=== PATIENT | female | born 1965 | race Caucasian/White ===

== ENCOUNTER → 2017-05-18 | Outpatient (CLI) | payer OTHER ==
[2017-05-19 10:59] LABS: HIV 1&2 SCREEN CENTAUR NEGATIVE (NEGATIVE)
[2017-05-19 13:06] LABS: HEPATITIS C VIRUS ABY INDEX 0.1 INDEX (<0.8)
[2017-05-19 14:15] LABS: TESTOSTERONE FREE (DIRECT) 0.3 pg/mL (0.0-4.2)
== END ==
LOC: M LAB 11:17
DX: Z12.31 Encounter for screening mammogram for malignant neoplasm of breast (principal); N91.4 Secondary oligomenorrhea; Z72.51 High risk heterosexual behavior
CPT/HCPCS: 77067

== ENCOUNTER 2017-07-26 07:05 | Day surgery (SDC) | payer OTHER ==
[2017-07-26] MEDS: NS 1,000 ML IV (07:00)
[2017-07-26] MEDS ORDERED: LIDOCAINE 2% INJ 100 MG/5 ML SDV (FOR ANES.) As Ordered (07:23)
[2017-07-26] MEDS ORDERED: PROPOFOL 200 MG/20 ML VIAL As Ordered (07:23)
== END 2017-07-26 09:12 | disposition home or self-care (01) ==
LOC: M OPP 07:05
DX: Z12.11 Encounter for screening for malignant neoplasm of colon (principal); F41.1 Generalized anxiety disorder; F17.210 Nicotine dependence, cigarettes, uncomplicated; K29.70 Gastritis, unspecified, without bleeding; Z79.899 Other long term (current) drug therapy; Z91.040 Latex allergy status; Z90.711 Acquired absence of uterus with remaining cervical stump; Z91.89 Other specified personal risk factors, not elsewhere classified; Z80.3 Family history of malignant neoplasm of breast; Z83.3 Family history of diabetes mellitus
CPT/HCPCS: 45378

== ENCOUNTER → 2018-09-30 | Outpatient (CLI) | payer BC, OTHER ==
[~2018-09-30] MED LIST: ABIL1TAB12 PO; MULT1TAB10 PO; PREM.6256 PO; SERT-138 PO; TRAZ-252 PO
--- NOTE | 2018-10-03 11:59 | REPMRS ---
Patient History The patient states she had a clinical breast exam in September 2018. Patient is postmenopausal and is nulliparous. Family history of breast cancer at age 55 in mother, colorectal cancer in paternal aunt. Took unspecified hormones for 6 months. 3D TOMOSYNTHESIS WAS PERFORMED. Digital Mammo Screening Bilat: September 30, 2018 - Exam #: [id number] Bilateral CC and MLO view(s) were taken. Technologist: Jessica Harper Technologist Prior study comparison: May 18, 2017, bilateral digital mammo screening bilat performed at [facility]. FINDINGS: The breast tissue is extremely dense which could obscure a lesion on mammography. There is no evidence of cancer on this mammogram. Assessment: BI-RADS/ACR category 2 mammogram. Benign Findings. Recommendation Routine screening mammogram of both breasts in 1 year (for women over age 40). This mammogram was interpreted with the aid of an FDA-approved computer-aided dectection system. THE LIFETIME RISK OF BREAST CANCER IS 25.1%, THEREFORE SUPPLEMENTAL SCREENING MRI OF THE BREASTS IS RECOMMENDED IN 6 MONTHS. Electronically Signed By: Rachid Bhakta MD 10/03/18 [id number]
== END ==
LOC: M RAD 10:13
PROVIDERS: ATTEND Obstetrics & Gynecology
DX: Z12.31 Encounter for screening mammogram for malignant neoplasm of breast (principal); Z80.3 Family history of malignant neoplasm of breast; Z78.0 Asymptomatic menopausal state; Z92.23 Personal history of estrogen therapy

== ENCOUNTER → 2020-06-14 | Outpatient (CLI) | payer BC ==
[~2020-06-14] MED LIST changes: +PROHANCE 279.3MG/ML 15ML VIAL As Ordered ONE; +PROHANCE 279.3MG/ML 5ML VIAL As Ordered ONE
--- NOTE | 2020-06-14 11:15 | REP ---
INDICATION: HIGH RISK FOR BREAST CA. COMPARISON: Mammogram 09/30/2018. TECHNIQUE: Three Daisy MRI imaging was performed with a dedicated breast coil. Axial, coronal, and sagittal T1 and T2 weighted scans were obtained with and without fat saturation in the usual fashion. The study includes dynamically acquired post gadolinium-enhanced imaging with image subtraction. Maximum intensity projection and multi planar reformation imaging is included as well. This study is interpreted with the aid of [employer]oQuest, an FDA approved computer aided detection (CAD) software program, on a dedicated breast MRI workstation. The gadolinium enhancement dose is 18 mL of intravenous ProHance. FINDINGS: Moderate to large amount of fibroglandular tissue is present bilaterally in a fairly symmetrical pattern.There is no axillary adenopathy identified. No significant cystic change is seen. There is mild background parenchymal enhancement. There is no suspicious enhancing mass or morphologic abnormality. IMPRESSION: BI-RADS category 1, negative bilateral breast MRI. No suspicious enhancing mass or morphologic abnormality. Yearly supplemental screening MRI of the breasts is recommended for patients with an elevated lifetime risk of breast cancer of 20% or greater, in addition to annual screening mammography, staggered every 6 months. <Electronically signed by Rachid Bhakta > 06/14/20 1111
== END ==
LOC: M RAD 08:35
PROVIDERS: ATTEND Surgery
DX: Z15.01 Genetic susceptibility to malignant neoplasm of breast (principal); Z91.89 Other specified personal risk factors, not elsewhere classified
CPT/HCPCS: A9576; C8908

== ENCOUNTER → 2020-11-21 | Outpatient (CLI) | payer BC ==
[~2020-11-21] MED LIST changes: -PROHANCE 279.3MG/ML 15ML VIAL As Ordered ONE; -PROHANCE 279.3MG/ML 5ML VIAL As Ordered ONE
--- NOTE | 2020-11-21 08:22 | REPMRS ---
Patient History The patient states she had a clinical breast exam in October 2020. Patient is postmenopausal and is nulliparous. Family history of breast cancer at age 55 in mother, colorectal cancer in paternal aunt. Taking progesterone for 1 year. Took unspecified hormones for 6 months. Patient states no breast complaints today. Patient has signed MRS History Sheet. Digital Woman Screen Mammo: November 21, 2020 - Exam #: [id number] Bilateral CC and MLO view(s) were taken. Technologist: Sussy Sims, Technologist Prior study comparison: September 30, 2018, bilateral digital mammo screening bilat, performed at [facility]. May 18, 2017, bilateral digital mammo screening bilat, performed at [facility]. FINDINGS: The breast tissue is heterogeneously dense. This may lower the sensitivity of mammography. Screening. Digital screening (2D) mammography was performed bilaterally in the CC and MLO projections. Additionally, breast tomosynthesis (3D mammography) was performed bilaterally in the CC and MLO projections. Todays exam was compared to the prior exam/exams. By history, the patient has no complaints of a palpable breast abnormality or other significant breast complaints. The breasts are unchanged in size and shape.Once again, dense heterogenous fibroglandular elements are seen bilaterally in a stable appearing pattern but to such a degree that the sensitivity of the mammogram in detecting cancer is decreased. There are no dominick-soft tissue densities or spiculated masses. There is no internal architectural distortion. There are no suspicious dominick-calcific clusters. Skin thickening or nipple retraction is not present. IMPRESSION: BI-RADS Category 2- Benign Findings. There is no evidence of malignant alteration of the breasts. Followup examination recommended in one year. The Volpara volumetric breast density category is C, the breasts are heterogenously dense which may obscure small masses. This mammogram was read with the assistance of Absio,an FDA approved computer aided detection system for mammography. The lifetime Tyrer-Cuzick score is 24.1% Due to the density of the breasts or Tyrer Cuzick score of 20% or greater, MRI/whole breast screening ultrasound is warranted. Negative x-ray reports should not delay surgical consultation if a dominant or clinically suspicious mass is present. Not all breast cancers can be identified by mammography. Therefore, we recommend that you continue to perform regular breast self-examination and physical examination and then promptly contact your physician of any concerns or changes. Adenosis and dense breasts may obscure an underlying neoplasm. Assessment: BI-RADS/ACR category 2 mammogram. Benign Findings. Recommendation Routine screening mammogram of both breasts in 1 year. Electronically Signed By: Marc Madison DO 11/21/20 [id number]
== END ==
LOC: M WHC 07:10
PROVIDERS: ATTEND Nurse Practitioner Women's Health
DX: Z12.31 Encounter for screening mammogram for malignant neoplasm of breast (principal); Z80.3 Family history of malignant neoplasm of breast

== ENCOUNTER → 2023-10-21 | Outpatient (CLI) | payer BC | LOC: M WHC 10:37 | PROVIDERS: ATTEND Nurse Practitioner Women's Health | DX: Z12.31 Encounter for screening mammogram for malignant neoplasm of breast (principal) ==

== ENCOUNTER → 2023-11-11 | Outpatient (CLI) | payer BC | LOC: M WHC 08:01 | PROVIDERS: ATTEND Nurse Practitioner Women's Health | DX: R92.2 Inconclusive mammogram (principal); Z80.3 Family history of malignant neoplasm of breast; Z91.89 Other specified personal risk factors, not elsewhere classified | CPT/HCPCS: 77065; G0279 ==